=== PATIENT | male | born 1955 | race African-American/Black ===

== ENCOUNTER 2016-09-18 14:03 | Inpatient (IN) | payer MEDICARE ==
--- NOTE | ~2016-09-18 | DS ---
Discharge Summary [facility] [address] [place]. [address] NAME: CORAL HARDWICK : 55 STATUS : ADM IN [facility]#: [id number] AGE: 60 ADM/REG DATE : 09/18/16 MR#: [id number] REPORT SERV DATE: 09/22/16 DICTATED BY: ELODIA STEINBERG DATE: 09/22/16 REPORT STATUS : Draft TRANSCRIBED BY: MODL DATE: 09/22/16 ADMISSION DATE: 09/18/2016 DISCHARGE DATE: 09/22/2016 FINAL HOSPITAL DIAGNOSES: 1. Pneumonia. 2. History of lung cancer. Follows at [place]. 3. History of adrenal insufficiency. He has been off steroid replacement for over a year. 4. History of IgG deficiency. 5. Hypertension. CONSULTATIONS: None. PROCEDURES: 1. Chest x-ray done on 09/21/2016 showing wedge-shaped area of density in the right lung base, question underlying atelectasis versus pneumonia. 2. Central line placement. CURRENT PHYSICAL FINDINGS AND HISTORY OF PRESENT ILLNESS: Please see initially H and P by myself. In brief, the patient is a 60-year-old male with above medical history, who had a recent ill at home, presented with lethargy and suspected pneumonia. Vital signs at time of admission; blood pressure is 129/76. The patient was not hypotensive during his hospital stay. T-max was 100.5 on the date of admission. Last temp of any sort was 99.4 on 09/19/2016. Heart rates were in the 70s to 80s, although he was in the 90s on his initial presentation. No supplemental O2 long-term was required. Lab at time of admission; his procalcitonin was 0.33, initial BMP showed a creatinine of 1.61, however, subsequent was 1.27 the following day, Dilantin level was 2.2, TSH was 1.26 with a T4 of 0.38, lactate was 0.9, and cortisol levels done, he had a random done at 1739 hours, which was 3.5. Initial white count was 6.1, subsequent was 5.7, he had H and H of approximately 9 and 27. Flu screen was negative. Strep urinary antigen was negative. Legionella was negative. Urinalysis showed some urobilinogen, otherwise unremarkable. Blood cultures done on 09/18/2016 are negative to date. Sputum culture done on 09/19/2016 was normal oral katlyn. HOSPITAL COURSE: The patient was admitted with a suspected community-acquired pneumonia. He was started on Rocephin and Zithromax. Serum Dilantin level, procalcitonin, and urinary antigen and flu screen and blood cultures were requested as noted above. He initially was given IV fluids as mentioned previously. No significant electrolyte abnormalities or hypotension was noted. The following day, he was better but still somewhat lethargic on speaking to his family members, particularly his . He was not undergoing active hormone replacement, had not been for a year but a random cortisol was checked late in the evening. He complained of some thrush and nystatin was ordered. Because he was lethargic and had some confusion at home, hydrocortisone was given. The following morning, he was actually improved and the hydrocodone was titrated down. On 09/21/2016, he continued to improve and had yet another titration down his hydrocortisone, which he tolerated well. He is reassessed on 09/22/2016. He has been afebrile. He has not been hypoxic. He is feeling much better. He responded well to antibiotics. No other significant lab abnormalities. It Discharge Summary [address] [address] NAME: CORAL HARDWICK : 55 STATUS : ADM IN [facility]#: [id number] AGE: 60 ADM/REG DATE : 09/18/16 MR#: [id number] REPORT SERV DATE: 09/22/16 DICTATED BY: ELODIA STEINBERG DATE: 09/22/16 REPORT STATUS : Draft TRANSCRIBED BY: MODL DATE: 09/22/16 was felt able to discharge in stable condition. Disposition is discharged home. He will finish out his therapy with Augmentin 875 b.i.d., to complete a week of therapy. He will continue home medications, which were Protonix 40, Dilantin 200 at bedtime, hydrocodone, Zofran 8, Zestril 40, hydrochlorothiazide 25, testosterone. RONAF/MAGUE Elodia Steinberg M.D. / [id number] CC: Elodia Steinberg M.D.
--- NOTE | ~2016-09-18 | HP ---
History And Physical [place] [address] [facility] [place]. [address] NAME: CORAL HARDWICK : 55 STATUS : ADM IN [facility]#: [id number] AGE: 60 ADM/REG DATE : 09/18/16 MR#: [id number] REPORT SERV DATE: 09/18/16 DICTATED BY: TY STEINBERG DATE: 09/18/16 REPORT STATUS : Draft TRANSCRIBED BY: MODL DATE: 09/18/16 DATE OF ADMISSION: 09/18/2016 CHIEF COMPLAINT: Pneumonia. HISTORY OF PRESENT ILLNESS: The patient is a 60-year-old male. History is from the patient and his family. His who is his major caregiver is unavailable. He apparently has a past history significant for lung cancer, diagnosed in approximately 2011. He had a right upper lobe lobectomy, follows with a physician at [place]. He also apparently had adrenal insufficiency in the past, although he is currently not on steroid replacement. He has IgG deficiency. He recently had his infusion. His ER sheet notes [employer] WORK[employer] lymphoma but he has no history on that. He presents today with a two-day history of cough, fever, nausea, and suspected flu. The patient states his was recently ill and she was taken to a physician and diagnosed with flu. He states he started getting sick shortly after with similar symptoms. He presented to the ER today with those complaints. On evaluation here, he was noted to have stable vitals. Creatinine mildly elevated at 1.6 with no baseline. He has been given IV fluids, antibiotics, vascular access, and is awaiting admission. PAST MEDICAL HISTORY: As covered above. PAST SURGICAL HISTORY: He reports lobectomy and ear surgery. CURRENT MEDICATIONS: Per his Pharmacy, hydrochlorothiazide 25, hydrocodone 10/325, Zestril 40, Zofran 8, Protonix 40, Dilantin 200, and testosterone. ALLERGIES: NONE. FAMILY HISTORY: Both parents . Father had polymyositis. Mother had cancer. SOCIAL HISTORY: Nondrinker, nonsmoker. REVIEW OF SYSTEMS: HEENT: No headache or dizziness. CARDIOVASCULAR: No chest pain or palpitations. PULMONARY: As covered in HPI. GI: As covered in HPI. : No dysuria. NEUROMUSCULOSKELETAL: Generalized weakness. Otherwise, 14-point review of systems is negative. PHYSICAL EXAMINATION: VITAL SIGNS: BP 125/86, temperature 98.4, pulse 95, respirations 16, sat 98%. GENERAL: He is awake. He is alert. He is appropriate. He answers questions. He is a little foggy. HEENT: Normocephalic, atraumatic. Sclerae nonicteric. History And Physical [address] [place]. [address] NAME: CORAL HARDWICK : 55 STATUS : ADM IN PAT#: [id number] AGE: 60 ADM/REG DATE : 09/18/16 MR#: [id number] REPORT SERV DATE: 09/18/16 DICTATED BY: TY STEINBERG DATE: 09/18/16 REPORT STATUS : Draft TRANSCRIBED BY: MODL DATE: 09/18/16 NECK: Supple. HEART: Regular rate and rhythm. LUNGS: Clear to auscultation. ABDOMEN: Nontender and nondistended with positive bowel sounds. EXTREMITIES: No clubbing, cyanosis, or edema. LABORATORY DATA: Sodium 141, potassium 3.6, chloride 104, CO2 of 27, BUN and creatinine are 18 and 1.6 with glucose of 76. Procalcitonin was 0.33. Lactate is 0.9. White count 6.1, H and H 9.9 and 30.2, platelets are 160. Urinalysis is negative. Blood cultures are pending. Chest x-ray shows right lower lobe pneumonia. EKG shows nonspecific ST changes, nothing acute. Normal sinus rhythm. ASSESSMENT: Suspected flu versus pneumonia. PLAN: 1. The patient has been admitted. 2. We will flu swab and left orders for Tamiflu if positive. 3. Rocephin and Zithromax for presumed community-acquired pneumonia. 4. IV fluids. 5. O2 and bronchodilators as needed. 6. We will monitor his blood pressure carefully. At this point, he is not hypotensive, but certainly if there is a history of adrenal insufficiency, stress dose steroids may be needed. We will try and obtain further history from his . 7. We will check a Dilantin level. TLF/MODL Ty Steinberg M.D. / [id number]
[~2016-09-18 14:03] MED LIST: BACDS PO; CARDCD240 PO; CHEMO; D100 PO; DEX4 PO; DILANTIN PO; FLUCON150 PO; HYDROCODONE PO; LEVOTHYROXIN100 MCG PO; LISINOPRIL PO; LISINOPRIL40 MG PO; LYRICA50 PO; NORCO1 TA1 PO; NORCO1 TAB PO; NYS500UDL PO; P10 PO; PCET PO; PRIN10 PO; PRIN20 PO; PROAIR HFA INH; PROTONIX PO; SPIRIVA INH; SYN075 PO; SYNTHROID137 MCG PO; TESTOST CYP200 MG/ML IM; VITD PO; ZOFRANODT8 PO
[2016-09-18 14:48] LABS: BASOPHILS 0.2 %; BASOPHILS ABSOLUTE 0.01 10/3/uL (0.0-0.16); EOSINOPHILS 1.8 %; EOSINOPHILS ABSOLUTE 0.11 10/3/uL (0.0-0.53); ER CBC TAT 0 Hrs 12 Mins; HEMATOCRIT 30.2 % (40.0-51.0); HEMOGLOBIN 9.9 g/dL (13.6-17.8); IMMATURE GRANULOCYTES 0.2 %; IMMATURE GRANULOCYTES ABSOLUTE 0.01 10/3/uL (0.0-0.11); LYMPHOCYTES 20.4 %; LYMPHOCYTES ABSOLUTE 1.24 10/3/uL (0.67-4.30); MANUAL DIFF NO %; MEAN CORPUS HGB CONC 32.8 g/dL (32.0-36.0); MEAN CORPUSCULAR HEMOGLOB 25.3 pg (26.0-34.0); MEAN CORPUSCULAR VOLUME 77.2 fL (80-100); MEAN PLATELET VOLUME 9.7 fL (9.2-13.0); MONOCYTES ABSOLUTE 0.79 10/3/uL (0.21-1.20); NEUTROPHILS 64.4 %; NEUTROPHILS ABSOLUTE 3.92 10/3/uL (2.02-8.40); PLATELET COUNT 160 10/3/uL (150-400); RED CELL COUNT 3.91 10/6/uL (4.7-6.1); WHITE BLOOD CELLS 6.1 10/3/uL (4.5-10.5)
[2016-09-18 14:52] LABS: ASCORBIC ACID (UR NOT ORDER) NEG (NEG); BILIRUBIN, URINE NEGATIVE (NEG); ER URINALYSIS TAT 0 Hrs 09 Mins; KETONE, URINE 20 MG/DL (NEG); LEUKOCYTE ESTERASE(NOT OR NEG (NEG); NITRITE (URINE) NEG (NEG); WBC (NOT ORDERED) (RFLEX) 1 (0-5)
[2016-09-18 14:56] LABS: INTERNATIONAL NORMAL RATI 1.3 UNITS (-); PARTIAL THROMBO TIME 49.3 SEC (22.5-37.2); PROTIME (NOT ORD) 15.8 SEC (12.0-14.5)
[2016-09-18 15:03] LABS: ALBUMIN 4.1 G/DL (3.5-5.0); ALKALINE PHOSPHATASE 36 U/L (45-117); BUN (BLOOD UREA NITROGEN) 18 MG/DL (6-23); CALCIUM, SERUM 8.4 MG/DL (8.5-10.4); CHLORIDE, SERUM 104 MMOL/L (96-112); CO2 (CARBON DIOXIDE) 27 MMOL/L (24-34); CREATININE 1.61 MG/DL (0.70-1.30); GFR AFRICAN AMERICAN 53 ML/MIN (>=60); GFR NON AFRICAN AMERICAN 46 ML/MIN (>=60); GLOBULIN 4.3 G/DL (2.5-4.1); GLUCOSE, SERUM 76 MG/DL (60-99); POTASSIUM, SERUM 3.6 MMOL/L (3.5-5.3); SGOT(AST) 45 U/L (5-40); SGPT(ALT) 18 U/L (5-65); SODIUM, SERUM 141 MMOL/L (135-148); TOTAL BILIRUBIN 0.5 MG/DL (0-1.2); TOTAL PROTEIN 8.4 G/DL (6.0-8.5)
[2016-09-18 15:05] LABS: LACTATE 0.9 MMOL/L (0.3-2.4)
[2016-09-18 15:20] LABS: PROCALCITONIN 0.33 ng/mL (<0.5)
[2016-09-18] MEDS ORDERED: ZESTRIL40 MG PO (16:15)
[2016-09-18] MEDS ORDERED: HYDROCHLOROT25 MG PO (16:15)
[2016-09-18] MEDS ORDERED: ZOFRANODT8 PO (16:15)
[2016-09-18] MEDS ORDERED: D100 PO (16:17)
[2016-09-18] MEDS ORDERED: PROTONIX PO (16:18)
[2016-09-18] MEDS ORDERED: TESTOST CYP100 MG/ML IM (16:18)
[2016-09-18] MEDS ORDERED: NORCO1 TAB PO (16:18)
[2016-09-18 18:41] LABS: ACETAMINOPHEN LEVEL (TYLENOL) < 2.0 MCG/ML (10.0-20.0)
[2016-09-18 18:42] LABS: ALCOHOL < 10 MG/DL (0); SALICYLATE < 1.7 MG/DL (-)
[2016-09-18 19:56] LABS: INFLUENZA A SCREEN NEGATIVE (NEGATIVE); INFLUENZA B SCREEN NEGATIVE (NEGATIVE)
[2016-09-18 20:40] LABS: DILANTIN (PHENYTOIN) 2.2 MCG/ML (10.0-20.0)
[2016-09-19 19:08] LABS: CALCIUM, SERUM 7.8 MG/DL (8.5-10.4); CHLORIDE, SERUM 109 MMOL/L (96-112); CREATININE 1.27 MG/DL (0.70-1.30); FREE T4 0.38 NG/DL (0.76-1.46); GFR AFRICAN AMERICAN 71 ML/MIN (>=60); GFR NON AFRICAN AMERICAN 61 ML/MIN (>=60); GLUCOSE, SERUM 89 MG/DL (60-99); POTASSIUM, SERUM 3.6 MMOL/L (3.5-5.3); SODIUM, SERUM 141 MMOL/L (135-148)
[2016-09-19 19:09] LABS: BUN (BLOOD UREA NITROGEN) 13 MG/DL (6-23); CO2 (CARBON DIOXIDE) 22 MMOL/L (24-34)
[2016-09-19 19:13] LABS: BASOPHILS 0.7 %; BASOPHILS ABSOLUTE 0.04 10/3/uL (0.0-0.16); EOSINOPHILS 3.7 %; EOSINOPHILS ABSOLUTE 0.21 10/3/uL (0.0-0.53); HEMATOCRIT 27.7 % (40.0-51.0); HEMOGLOBIN 9.1 g/dL (13.6-17.8); IMMATURE GRANULOCYTES 1.6 %; IMMATURE GRANULOCYTES ABSOLUTE 0.09 10/3/uL (0.0-0.11); LYMPHOCYTES 21.9 %; LYMPHOCYTES ABSOLUTE 1.24 10/3/uL (0.67-4.30); MANUAL DIFF NO %; MEAN CORPUS HGB CONC 32.9 g/dL (32.0-36.0); MEAN CORPUSCULAR HEMOGLOB 25.3 pg (26.0-34.0); MEAN CORPUSCULAR VOLUME 77.2 fL (80-100); MEAN PLATELET VOLUME 10.1 fL (9.2-13.0); MONOCYTES 8.1 %; MONOCYTES ABSOLUTE 0.46 10/3/uL (0.21-1.20); NEUTROPHILS ABSOLUTE 3.63 10/3/uL (2.02-8.40); NUCLEATED RED BLOOD CELLS 1.6 /100WBC (0-0); PLATELET COUNT 170 10/3/uL (150-400); RBC DISTRIBUTION WIDTH 17.9 % (12.0-16.0); RED CELL COUNT 3.59 10/6/uL (4.7-6.1); WHITE BLOOD CELLS 5.7 10/3/uL (4.5-10.5)
[2016-09-22] MEDS ORDERED: AUG875 PO (13:24)
== END 2016-09-22 17:38 | disposition home or self-care (01) | DRG 194 ==
LOC: ER 14:03 → 4SO 17:06
PROVIDERS: Emergency Medicine; Internal Medicine
DX: J18.9 Pneumonia, unspecified organism (principal); D80.3 Selective deficiency of immunoglobulin G [IgG] subclasses; N17.9 Acute kidney failure, unspecified; B37.0 Candidal stomatitis; E27.40 Unspecified adrenocortical insufficiency; Z85.118 Personal history of other malignant neoplasm of bronchus and lung; Z90.2 Acquired absence of lung [part of]; Z28.21 Immunization not carried out because of patient refusal
CPT/HCPCS: 71010; 80048; 80053; 80185; 80307; 81001; 82533; 83605; 84145; 84439; 84443; 85025; 85610; 85730; 87040; 87070; 87205; 87449; 87804; 93005; 94640; 96374; 99285; A9270-GY; J0456; J1170; J1720; J2405